=== PATIENT | female | born 1995 | race Caucasian/White ===

== ENCOUNTER 2016-05-21 14:30 | Emergency (ER) | payer MEDICAID ==
[2016-05-21 15:10] VITALS: BP 109/55
[2016-05-21] MEDS ORDERED: Sodium Chloride 0.9% 1,000 ML IV SCH (16:00)
--- NOTE | 2016-05-21 16:01 | EDM.PDOC ---
[id number] [id number] /CAN'T KEEP ANYTHING DOWN Time Seen by Provider: 05/21/16 15:45 Source: Reports: Patient, Family History Limitations: Reports: No limitations - History of Present Illness INITIAL COMMENTS - FREE TEXT/NARRATIVE: 20-year-old female who is 13 weeks gestation with a that has been diagnosed with a small "bleed" which I assume is a chorionic hemorrhage of some type as they are encouraging her to rest. She's had a lot of nausea and vomiting with her , and is needed IV fluids several times. She is up here visiting, has been vomiting for 2 days and came in to be evaluated. No vaginal bleeding, some mild abdominal cramps Severity: moderate Associated Symptoms: Denies: vaginal bleeding Treatment(s) PHYSICAL THERAPY RESIDENT: Reports: Other (see below) (Zofran makes her more sick) - Related Data Allergies/ADRs: Allergies Allergy/AdvReac Type Severity Reaction Status Date / Time amoxicillin Allergy Hives Verified 12/19/15 18:24 ondansetron Allergy Vomiting Verified 05/21/16 15:23 [From Zofran (as hydrochloride)] Penicillins Allergy Hives Verified 12/19/15 18:24 zofran Allergy Vomiting Uncoded 05/21/16 15:23 Home Meds: Home Meds NK [No Known Home Meds] 05/21/16 [History] Past Medical History HEENT History: Reports: Impaired vision Other HEENT History: wisdom teeth removed Respiratory History: Reports: Asthma 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: , 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 Neurological History: Reports: Migraines, Seizure Psychiatric History: Reports: ADHD, Anxiety, Depression, Panic attack - Infectious Disease History Infectious Disease History: Reports: Chicken pox - Past Surgical History HEENT Surgical History: Reports: Other (see below) (Dental surgery for wisdom teeth removal) Social & Family History - Tobacco Use Smoking Status *Q: Never Smoker Second Hand Smoke Exposure: No - Caffeine Use Caffeine Use: Reports: None - Recreational Drug Use Recreational Drug Use: No - Living Situation & Occupation Living situation: Reports: with significant other ( her , lives with significant other David, and her 2 children and [facility]), with family Occupation: unemployed ED ROS GENERAL - Review of Systems Review Of Systems: See Below Constitutional: Reports: malaise, weakness. Denies: fever, chills HEENT: Reports: No symptoms Respiratory: Denies: Shortness of Breath Cardiovascular: Denies: Chest pain GI/Abdominal: Reports: Abdominal pain, Nausea, Vomiting : Reports: no symptoms Neurological: Reports: Dizziness Psychiatric: Reports: No symptoms ED EXAM - Physical Exam Exam: See Below Exam Limited By: No limitations General Appearance: alert, no apparent distress Eye Exam: bilateral eye: EOMI, normal inspection Respiratory/Chest: no respiratory distress, lungs clear Cardiovascular: regular rate, rhythm. No: tachycardia GI/Abdominal: soft heart tones: present heart tones per min: 170 Extremities: normal inspection Neurological: alert, oriented Skin Exam: Warm, Dry, Pallor Course - Vital Signs Last Recorded V/S: Last Vital Signs Temp 96.2 F 05/21/16 15:25 Pulse 94 05/21/16 15:25 Resp 14 05/21/16 15:25 BP 109/55 L 05/21/16 15:25 Pulse Ox 100 05/21/16 15:25 - Orders/Labs/Meds Labs: Laboratory Tests 05/21/16 05/21/16 Range/Units 15:58 15:58 WBC 9.8 (4.5-11.0) K/uL RBC 4.23 (3.30-5.50) M/uL Hgb 12.7 (12.0-15.0) g/dL Hct 33.9 L (36.0-48.0) % MCV 80 (80-98) fL MCH 30 (27-31) pg MCHC 38 H (32-36) % Plt Count 256 (150-400) K/uL Neut % (Auto) 74 H (36-66) % Lymph % (Auto) 18 L (24-44) % [place] % (Auto) 7 H (2-6) % Eos % (Auto) 0 L (2-4) % Baso % (Auto) 0 (0-1) % Sodium 141 (140-148) mmol/L Potassium 4.9 (3.6-5.2) mmol/L Chloride 105 (100-108) mmol/L Carbon Dioxide 17 L (21-32) mmol/L Anion Gap 23.9 H (5.0-14.0) mmol/L BUN 13 (7-18) mg/dL Creatinine 0.5 L (0.6-1.0) mg/dL Est Cr Clr Drug Dosing 140.77 mL/min Estimated GFR (MDRD) > 60 (>60) Glucose 89 (74-106) mg/dL Calcium 9.3 (8.5-10.1) mg/dL Meds: Medications Discontinued Medications Generic Name Dose Route Start Last Admin Trade Name Freq PRN Reason Stop Dose Admin Sodium Chloride 1,000 mls @ 1,000 mls/hr 05/21/16 16:00 05/21/16 16:05 Normal Saline IV 1,000 mls/hr ASDIRECTED [facility] Administration - Re-Assessments/Exams Free Text/Narrative Re-Assessment/Exam: 05/21/16 16:01 She looks pale so a CBC BMP will be obtained while she is getting 1 L of normal saline. 05/21/16 17:01 Patient had no vomiting while in the emergency room for one and half hours. Labs returned reassuring and heart tones were normal. The patient can recheck when home. Departure - Departure Time of Disposition: 17:25 Disposition: Home, Self-Care 01 Condition: good Clinical Impression: Nausea and vomiting in prior to 22 weeks gestation Instructions: Morning Sickness Referrals: Joceline White RN [Primary Care Provider] - Forms: ED Department Discharge Care Plan Goals: Try to increase fluids as tolerated. Recheck in 2-3 days if not improving satisfactorily.
== END 2016-05-21 17:25 | disposition home or self-care (01) ==
LOC: JP.ED 14:30
DX: O21.9 Vomiting of pregnancy, unspecified (principal); Z88.0 Allergy status to penicillin; Z88.1 Allergy status to other antibiotic agents; Z88.8 Allergy status to other drugs, medicaments and biological substances; Z98.890 Other specified postprocedural states; Z3A.13 13 weeks gestation of pregnancy
CPT/HCPCS: 36415; 80048; 85025; 96360; 99284; J7040

== ENCOUNTER 2016-06-17 18:02 | Emergency (ER) | payer MEDICAID ==
[2016-06-17] MEDS: Sodium Chloride 0.9% 1,000 ML IV SCH ×2 (18:38→20:27)
[2016-06-17] MEDS ORDERED: Acetaminophen 500 MG Tab PO ONE (19:16)
[2016-06-17] MEDS ORDERED: Metoclopramide 10 MG/2 ML SDV IVPUSH ONE (19:45)
[2016-06-17] MEDS ORDERED: diphenhydrAMINE 50 MG/ML SDV IVPUSH ONE (19:45)
[2016-06-17] MEDS ORDERED: Sodium Chloride 0.9% 1,000 ML IV SCH (20:30)
--- NOTE | 2016-06-17 21:49 | EDM.PDOC ---
ED HPI - General Chief Complaint: CRESTER Problem Stated Complaint: MEDICAL VIA [facility]TH Time Seen by Provider: 06/17/16 18:15 Source: Reports: Patient History Limitations: Reports: No limitations - History of Present Illness INITIAL COMMENTS - FREE TEXT/NARRATIVE: Pt here with 10/10 chest pain and upper back pain. Feel like "knifes" are sticking out of her back and "ton" of bricks landed on her chest. All this started this morning. She is at 15 weeks gestation. OB is in [place]. She carries the dx of of hyperemesis gravidarum. She can't keep "anything down ". States zofran makes her more nauseated. [place] thinking that would help her pain and then as it did not she called an ambulance to bring her here. No HO PE or clots. Recently saw her OB doc and has FU in June. Has 2 children at home that dad is watching. No fever or cough. No SOB. Has trouble swallowing pills. gags on them. Is taking gummy vitamins. No dysuria. No cramping or spotting. 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: , Spontaneous Neurological History: Reports: Migraines, Seizure Psychiatric History: Reports: ADHD, Anxiety, Depression, Panic attack - Infectious Disease History Infectious Disease History: Reports: Chicken pox - Past Surgical History HEENT Surgical History: Reports: Other (see below) (Dental surgery for wisdom teeth removal) Social & Family History - Tobacco Use Smoking Status *Q: Never Smoker Second Hand Smoke Exposure: No - Caffeine Use Caffeine Use: Reports: None - Recreational Drug Use Recreational Drug Use: No - Living Situation & Occupation Living situation: Reports: with significant other ( her , lives with significant other David, and her 2 children and [place]), with family Occupation: unemployed ED ROS GENERAL - Review of Systems Review Of Systems: ROS reveals no pertinent complaints other than HPI. ED EXAM - Physical Exam Exam: See Below Exam Limited By: No limitations General Appearance: alert, WD/WN, anxious Ears: normal external exam Nose: normal inspection Throat/Mouth: Normal inspection, Normal lips, Normal oropharynx, Normal voice, No airway compromise Head: atraumatic, normocephalic Neck: normal inspection, supple, non-tender, full range of motion Respiratory/Chest: no respiratory distress, lungs clear, normal breath sounds, no accessory muscle use, other (palpation of anterior chest, even light pressure causes her to arch her back and neck in "pain") Cardiovascular: normal peripheral pulses, regular rate, rhythm, no edema GI/Abdominal: normal bowel sounds, soft, non tender, no organomegaly, gravid uterus heart tones: present heart tones per min: 140 Back Exam: normal inspection, full range of motion Extremities: normal inspection, normal range of motion, non-tender, no pedal edema, normal capillary refill Neurological: alert, oriented, normal cognition, normal reflexes, no motor/ sensory deficits Psychiatric: other (Seem histrionic) Skin Exam: Warm, Dry, Intact, Normal color, No rash Lymphatic: no adenopathy EKG INTERPRETATION Rhythm: NSR [place]: normal P-wave: present QRS: normal ST-T: normal QT: prolonged Course - Vital Signs Text/Narrative:: Neg Eugenio LE doppler for clot Last Recorded V/S: Last Vital Signs Temp 36.2 C 06/17/16 18:06 Pulse 93 06/17/16 20:49 Resp 16 06/17/16 20:49 BP 99/57 L 06/17/16 20:49 Pulse Ox 98 06/17/16 20:49 - Orders/Labs/Meds Orders: Active Orders 24 hr Category Date Time Status EKG Documentation Completion [RC] ASDIRECTED Care 06/17/16 18:19 Active VL Duplex Lwr Ext Veins Comp [US] Stat Exams 06/17/16 19:28 Taken DRUG SCREEN, URINE [URCHEM] Stat Lab 06/17/16 18:18 Uncollected UA W/MICROSCOPIC [URIN] Stat Lab 06/17/16 18:17 Uncollected Sodium Chloride 0.9% [Normal Saline] 1,000 ml Med 06/17/16 18:30 Active IV ASDIRECTED Sodium Chloride 0.9% [Normal Saline] 1,000 ml Med 06/17/16 20:30 Active IV ASDIRECTED EKG 12 Lead [EK] Stat Ther 06/17/16 18:17 Ordered Medication Orders Sodium Chloride (Normal Saline) 1,000 mls @ 500 mls/hr IV ASDIRECTED URI Last Admin: 06/17/16 20:27 Dose: 500 mls/hr Infusion: 06/17/16 20:27 Dose: 500 mls/hr Admin: 06/17/16 18:38 Dose: 500 mls/hr Sodium Chloride (Normal Saline) 1,000 mls @ 500 mls/hr IV ASDIRECTED URI Labs: Laboratory Tests 06/17/16 06/17/16 06/17/16 Range/Units 18:31 18:31 18:31 WBC 11.4 H (4.5-11.0) K/uL RBC 4.43 (3.30-5.50) M/uL Hgb 13.4 (12.0-15.0) g/dL Hct 35.4 L (36.0-48.0) % MCV 80 (80-98) fL MCH 30 (27-31) pg MCHC 38 H (32-36) % Plt Count 347 (150-400) K/uL Neut % (Auto) 76 H (36-66) % Lymph % (Auto) 17 L (24-44) % [place] % (Auto) 7 H (2-6) % Eos % (Auto) 0 L (2-4) % Baso % (Auto) 0 (0-1) % ESR (0-25) mm/hr PT 11.0 (9.5-12.0) sec INR 1.04 (0.80-1.20) D-Dimer, Quantitative 408 H (0.0-400.0) ng/mL Sodium (140-148) mmol/L Potassium (3.6-5.2) mmol/L Chloride (100-108) mmol/L Carbon Dioxide (21-32) mmol/L Anion Gap (5.0-14.0) mmol/L BUN (7-18) mg/dL Creatinine (0.6-1.0) mg/dL Est Cr Clr Drug Dosing mL/min Estimated GFR (MDRD) (>60) Glucose (74-106) mg/dL Calcium (8.5-10.1) mg/dL Total Bilirubin (0.2-1.0) mg/dL AST (15-37) U/L ALT (12-78) U/L Alkaline Phosphatase (46-116) U/L Troponin I (0.000-0.056) ng/mL C-Reactive Protein (0.0-0.3) mg/dL Total Protein (6.4-8.2) g/dL Albumin (3.4-5.0) g/dL Globulin (2.3-3.5) g/dL Albumin/Globulin Ratio (1.2-2.2) 06/17/16 06/17/16 06/17/16 Range/Units 18:49 18:49 18:50 WBC (4.5-11.0) K/uL RBC (3.30-5.50) M/uL Hgb (12.0-15.0) g/dL Hct (36.0-48.0) % MCV (80-98) fL MCH (27-31) pg MCHC (32-36) % Plt Count (150-400) K/uL Neut % (Auto) (36-66) % Lymph % (Auto) (24-44) % [place] % (Auto) (2-6) % Eos % (Auto) (2-4) % Baso % (Auto) (0-1) % ESR 53 H (0-25) mm/hr PT (9.5-12.0) sec INR (0.80-1.20) D-Dimer, Quantitative (0.0-400.0) ng/mL Sodium (140-148) mmol/L Potassium (3.6-5.2) mmol/L Chloride (100-108) mmol/L Carbon Dioxide (21-32) mmol/L Anion Gap (5.0-14.0) mmol/L BUN (7-18) mg/dL Creatinine (0.6-1.0) mg/dL Est Cr Clr Drug Dosing mL/min Estimated GFR (MDRD) (>60) Glucose (74-106) mg/dL Calcium (8.5-10.1) mg/dL Total Bilirubin (0.2-1.0) mg/dL AST (15-37) U/L ALT (12-78) U/L Alkaline Phosphatase (46-116) U/L Troponin I < 0.017 (0.000-0.056) ng/mL C-Reactive Protein 0.56 H (0.0-0.3) mg/dL Total Protein (6.4-8.2) g/dL Albumin (3.4-5.0) g/dL Globulin (2.3-3.5) g/dL Albumin/Globulin Ratio (1.2-2.2) 06/17/16 Range/Units 20:26 WBC (4.5-11.0) K/uL RBC (3.30-5.50) M/uL Hgb (12.0-15.0) g/dL Hct (36.0-48.0) % MCV (80-98) fL MCH (27-31) pg MCHC (32-36) % Plt Count (150-400) K/uL Neut % (Auto) (36-66) % Lymph % (Auto) (24-44) % [place] % (Auto) (2-6) % Eos % (Auto) (2-4) % Baso % (Auto) (0-1) % ESR (0-25) mm/hr PT (9.5-12.0) sec INR (0.80-1.20) D-Dimer, Quantitative (0.0-400.0) ng/mL Sodium 136 L (140-148) mmol/L Potassium 3.6 (3.6-5.2) mmol/L Chloride 100 (100-108) mmol/L Carbon Dioxide 19 L (21-32) mmol/L Anion Gap 20.6 H (5.0-14.0) mmol/L BUN 12 (7-18) mg/dL Creatinine 0.6 (0.6-1.0) mg/dL Est Cr Clr Drug Dosing 117.31 mL/min Estimated GFR (MDRD) > 60 (>60) Glucose 119 H (74-106) mg/dL Calcium 9.3 (8.5-10.1) mg/dL Total Bilirubin 0.8 (0.2-1.0) mg/dL AST 22 (15-37) U/L ALT 48 (12-78) U/L Alkaline Phosphatase 97 (46-116) U/L Troponin I (0.000-0.056) ng/mL C-Reactive Protein (0.0-0.3) mg/dL Total Protein 7.6 (6.4-8.2) g/dL Albumin 3.6 (3.4-5.0) g/dL Globulin 4.0 H (2.3-3.5) g/dL Albumin/Globulin Ratio 0.9 L (1.2-2.2) Meds: Medications Generic Name Dose Route Start Last Admin Trade Name Freq PRN Reason Stop Dose Admin Sodium Chloride 1,000 mls @ 500 mls/hr 06/17/16 18:30 06/17/16 20:27 Normal Saline IV 500 mls/hr ASDIRECTED URI Administration Sodium Chloride 1,000 mls @ 500 mls/hr 06/17/16 20:30 Normal Saline IV ASDIRECTED URI Discontinued Medications Generic Name Dose Route Start Last Admin Trade Name Freq PRN Reason Stop Dose Admin Acetaminophen 1,000 mg 06/17/16 19:16 06/17/16 19:22 Tylenol Extra Strength PO 06/17/16 19:17 Not Given ONETIME ONE Diphenhydramine HCl 25 mg 06/17/16 19:45 06/17/16 20:00 Benadryl IVPUSH 06/17/16 19:46 25 mg ONETIME ONE Administration Metoclopramide HCl 10 mg 06/17/16 19:45 06/17/16 19:56 Reglan IVPUSH 06/17/16 19:46 10 mg ONETIME ONE Administration Departure - Departure Time of Disposition: 21:53 Disposition: Home, Self-Care 01 Condition: good Clinical Impression: Hyperemesis gravidarum, Chest wall pain Forms: ED Department Discharge Additional Instructions: Call your OB and FU with her to decide how to manage your pain. I would recommend hot packs to chest and back. - My Orders Last 24 Hours: My Active Orders 06/17/16 18:17 UA W/MICROSCOPIC [URIN] Stat EKG 12 Lead [EK] Stat 06/17/16 18:18 DRUG SCREEN, URINE [URCHEM] Stat 06/17/16 18:19 EKG Documentation Completion [RC] ASDIRECTED 06/17/16 18:30 Sodium Chloride 0.9% [Normal Saline] 1,000 ml IV ASDIRECTED 06/17/16 19:28 VL Duplex Lwr Ext Veins Comp [US] Stat 06/17/16 20:30 Sodium Chloride 0.9% [Normal Saline] 1,000 ml IV ASDIRECTED - Assessment/Plan Last 24 Hours: My Active Orders 06/17/16 18:17 UA W/MICROSCOPIC [URIN] Stat EKG 12 Lead [EK] Stat 06/17/16 18:18 DRUG SCREEN, URINE [URCHEM] Stat 06/17/16 18:19 EKG Documentation Completion [RC] ASDIRECTED 06/17/16 18:30 Sodium Chloride 0.9% [Normal Saline] 1,000 ml IV ASDIRECTED 06/17/16 19:28 VL Duplex Lwr Ext Veins Comp [US] Stat 06/17/16 20:30 Sodium Chloride 0.9% [Normal Saline] 1,000 ml IV ASDIRECTED
[2016-06-17 22:08] VITALS: BP 109/63
--- NOTE | 2016-06-18 12:31 | US ---
VL Duplex Lwr Ext Veins Comp FINDINGS: Ultrasound examination of bilateral lower extremities using Doppler and compressive techni que demonstrates that the right and left common femoral, femoral, and popliteal veins are patent and negative for thrombus. The right and left calf veins were segmentally visualized and are negative w here seen. IMPRESSION: Right and left lower extremities negative for deep venous thrombosis.
== END 2016-06-17 22:40 | disposition home or self-care (01) ==
LOC: JP.ED 18:04
DX: O21.0 Mild hyperemesis gravidarum (principal); O99.89 Other specified diseases and conditions complicating pregnancy, childbirth and the puerperium; R07.89 Other chest pain; J45.909 Unspecified asthma, uncomplicated; F90.9 Attention-deficit hyperactivity disorder, unspecified type; G43.909 Migraine, unspecified, not intractable, without status migrainosus; Z3A.15 15 weeks gestation of pregnancy; Z88.1 Allergy status to other antibiotic agents; Z88.0 Allergy status to penicillin; Z88.8 Allergy status to other drugs, medicaments and biological substances
CPT/HCPCS: 36415; 80053; 84484; 85025; 85379; 85610; 85651; 86140; 93005; 93970; 96361; 96374; 96375; 99285; J1200; J2765; J7040

== ENCOUNTER 2017-03-21 07:58 | Emergency (ER) | payer MEDICAID ==
[2017-03-21 08:23] VITALS: BP 124/76
[2017-03-21] MEDS ORDERED: Albuterol 0.083% 2.5 MG/3 ML Neb Soln NEB ONE (08:31)
--- NOTE | 2017-03-21 08:37 | EDM.PDOC ---
ED HPI GENERAL MEDICAL PROBLEM - General Chief Complaint: Asthma Stated Complaint: CHEST PRESSURE Time Seen by Provider: 03/21/17 08:35 Source of Information: Reports: Patient History Limitations: Reports: No Limitations - History of Present Illness INITIAL COMMENTS - FREE TEXT/NARRATIVE: pt arrived with increased sob. She seemed slightly panicy when she arrived. She did use her inhaler just prior to arrival. Onset: Today Duration: Hour(s): Location: Reports: Chest Associated Symptoms: Reports: Cough, Shortness of Breath, Other (pt has a history of wheezing. 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: , 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 Neurological History: Reports: Migraines, Seizure Psychiatric History: Reports: ADHD, Anxiety, Depression, Panic Attack - Infectious Disease History Infectious Disease History: Reports: Chicken Pox - Past Surgical History HEENT Surgical History: Reports: Oral Surgery, Other (See Below) Female Surgical History: Reports: Section Social & Family History - Tobacco Use Smoking Status *Q: Unknown Ever Smoked Second Hand Smoke Exposure: No - Caffeine Use Caffeine Use: Reports: None - Recreational Drug Use Recreational Drug Use: No - Living Situation & Occupation Living situation: Reports: with Significant Other, with Family Occupation: Unemployed ED ROS GENERAL - Review of Systems Review Of Systems: See Below Constitutional: Reports: No Symptoms HEENT: Reports: No Symptoms Respiratory: Reports: Shortness of Breath, Cough Cardiovascular: Reports: No Symptoms Endocrine: Reports: No Symptoms GI/Abdominal: Reports: No Symptoms : Reports: No Symptoms Musculoskeletal: Reports: No Symptoms Skin: Reports: No Symptoms ED EXAM, GENERAL - Physical Exam Exam: See Below Free Text/Narrative:: pt arrived with acute sob . Exam Limited By: No Limitations General Appearance: Alert, Anxious, Mild Distress Ears: Normal TMs Nose: Normal Inspection Throat/Mouth: Normal Inspection Head: Atraumatic Neck: Normal Inspection Respiratory/Chest: No Respiratory Distress Cardiovascular: Regular Rate, Rhythm GI/Abdominal: Soft, Non-Tender Extremities: Normal Inspection Neurological: Alert, Oriented, Normal Cognition Psychiatric: Anxious, Other (pt did appear anxious when she first arrived. ) Course - Vital Signs Last Recorded V/S: Last Vital Signs Temp 36.1 C 03/21/17 08:14 Pulse 107 H 03/21/17 08:14 Resp 15 03/21/17 08:14 BP 124/76 03/21/17 08:14 Pulse Ox 99 03/21/17 08:14 - Orders/Labs/Meds Orders: Active Orders 24 hr Category Date Time Status RT Aerosol Therapy [RC] ASDIRECTED Care 03/21/17 08:31 Active BASIC METABOLIC PANEL,BMP [CHEM] Stat Lab 03/21/17 08:41 Received Labs: Laboratory Tests 03/21/17 Range/Units 08:41 WBC 9.0 (4.5-11.0) K/uL RBC 4.57 (3.30-5.50) M/uL Hgb 12.7 (12.0-15.0) g/dL Hct 38.1 (36.0-48.0) % MCV 83 (80-98) fL MCH 28 (27-31) pg MCHC 33 (32-36) % Plt Count 285 (150-400) K/uL Neut % (Auto) 80 H (36-66) % Lymph % (Auto) 14 L (24-44) % [place] % (Auto) 5 (2-6) % Eos % (Auto) 1 L (2-4) % Baso % (Auto) 0 (0-1) % Meds: Medications Discontinued Medications Generic Name Dose Route Start Last Admin Trade Name Freq PRN Reason Stop Dose Admin Albuterol 2.5 mg 03/21/17 08:31 03/21/17 08:35 Proventil Neb Soln NEB 03/21/17 08:32 2.5 mg ONETIME ONE Administration - Re-Assessments/Exams Free Text/Narrative Re-Assessment/Exam: 03/21/17 09:14 Pt was given a albuterol neb which appeared to help She was willing to go home. Departure - Departure Time of Disposition: 09:07 Disposition: Home, Self-Care 01 Condition: Fair Clinical Impression: Bronchospasm - Discharge Information Referrals: PCP,None [Primary Care Provider] - Forms: ED Department Discharge Care Plan Goals: establish with a regular Dr, push fluids, cool mist humidifier, Use the ventolin inhaler 2 puffs tid regularly for the next few days and then do PRN. - My Orders Last 24 Hours: My Active Orders 03/21/17 08:31 RT Aerosol Therapy [RC] ASDIRECTED 03/21/17 08:41 BASIC METABOLIC PANEL,BMP [CHEM] Stat - Assessment/Plan Last 24 Hours: My Active Orders 03/21/17 08:31 RT Aerosol Therapy [RC] ASDIRECTED 03/21/17 08:41 BASIC METABOLIC PANEL,BMP [CHEM] Stat
== END 2017-03-21 09:16 | disposition home or self-care (01) ==
LOC: JP.ED 07:58
DX: J98.01 Acute bronchospasm (principal); Z88.1 Allergy status to other antibiotic agents; Z88.0 Allergy status to penicillin; Z88.8 Allergy status to other drugs, medicaments and biological substances
CPT/HCPCS: 36415; 80048; 85025; 94640; 99285-25

== ENCOUNTER 2017-04-18 10:02 | Emergency (ER) | payer MEDICAID | END 2017-04-18 12:25 | disposition left against medical advice (07) | LOC: JP.ED 10:02 | DX: Z53.21 Procedure and treatment not carried out due to patient leaving prior to being seen by health care provider (principal) ==

== ENCOUNTER 2017-06-18 14:38 | Emergency (ER) | payer MEDICAID ==
[2017-06-18] MEDS ORDERED: Prochlorperazine 10 MG/2 ML SDV IVPUSH ONE (15:36)
[2017-06-18] MEDS ORDERED: diphenhydrAMINE 50 MG/ML SDV IVPUSH ONE (15:36)
[2017-06-18] MEDS ORDERED: Ketorolac 30 MG/ML SDV IVPUSH ONE (15:36)
[2017-06-18] MEDS ORDERED: Sodium Chloride 0.9% 1,000 ML IV SCH (15:45)
[2017-06-18 15:47] VITALS: BP 127/73
--- NOTE | 2017-06-18 16:14 | EDM.PDOC ---
ED HPI GENERAL MEDICAL PROBLEM - General Chief Complaint: Headache Stated Complaint: headache Time Seen by Provider: 06/18/17 14:55 Source of Information: Reports: Patient History Limitations: Reports: No Limitations - History of Present Illness INITIAL COMMENTS - FREE TEXT/NARRATIVE: pt arrived with a severe migraine type headache with nausea and lite sensitivity. Onset: Today Duration: Hour(s): Location: Reports: Head, Neck, Other ( she has alot of tightness in her neck) Associated Symptoms: Reports: Headaches, Nausea/Vomiting Headache Pain Score (Numeric/FACES): 7 - Related Data Allergies Allergy/AdvReac Type Severity Reaction Status Date / Time amoxicillin Allergy Hives Verified 06/18/17 15:13 ondansetron Allergy Vomiting Verified 06/18/17 15:13 [From Zofran (as hydrochloride)] Penicillins Allergy Hives Verified 06/18/17 15:13 Home Meds: Home Meds Citalopram [Citalopram HBr] 1 tab PO DAILY 06/18/17 [History] Fluticasone/Salmeterol [Fluticasone-Salmeterol 232-14] 1 puff INH ASDIRECTED [History] Rizatriptan Benzoate [Rizatriptan] 1 tab PO ASDIRECTED 06/18/17 [History] Past Medical History HEENT History: Reports: Impaired Vision Other HEENT History: wisdom teeth removed Respiratory History: Reports: Asthma 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: , Spontaneous Neurological History: Reports: Migraines, Seizure Psychiatric History: Reports: ADHD, Anxiety, Depression, Panic Attack - Infectious Disease History Infectious Disease History: Reports: Chicken Pox - Past Surgical History HEENT Surgical History: Reports: Oral Surgery Female Surgical History: Reports: Section Social & Family History - Tobacco Use Smoking Status *Q: Never Smoker Second Hand Smoke Exposure: No - Caffeine Use Caffeine Use: Reports: None - Recreational Drug Use Recreational Drug Use: No - Living Situation & Occupation Living situation: Reports: with Significant Other, with Family Occupation: Unemployed ED ROS GENERAL - Review of Systems Review Of Systems: See Below Constitutional: Reports: No Symptoms HEENT: Reports: No Symptoms Respiratory: Reports: No Symptoms Cardiovascular: Reports: No Symptoms Endocrine: Reports: No Symptoms GI/Abdominal: Reports: No Symptoms, Nausea : Reports: No Symptoms Musculoskeletal: Reports: Other (pt has tightness in her post cervical area. ) Skin: Reports: No Symptoms Neurological: Reports: Dizziness, Headache - Physical Exam Exam: See Below Text/Narrative:: pt arrived with pain in the post cervical area. She had a severe headache with nausea and lite sensitivity. Exam Limited By: No Limitations General Appearance: Alert, Anxious, Severe Distress, Other (pupils are equal and reactive. ) Ears: Normal TMs Nose: Normal Inspection Throat/Mouth: Normal Inspection Head Exam: Atraumatic Neck: Tender Lateral, Other (Pt has marked tenderness in the post cervical area. ) Respiratory/Chest: No Respiratory Distress Cardiovascular: Regular Rate, Rhythm GI/Abdominal: Soft, Non-Tender (Female) Exam: Deferred Rectal (Female) Exam: Deferred Neuro Exam (Abbreviated): Alert, Oriented, Normal Cognition Extremities: Normal Inspection Psychiatric: Anxious Course - Vital Signs Last Recorded V/S: Last Vital Signs Temp 37.1 C 06/18/17 15:05 Pulse 99 06/18/17 15:05 Resp 16 06/18/17 15:05 BP 127/73 06/18/17 15:05 Pulse Ox 99 06/18/17 15:05 - Orders/Labs/Meds Orders: Active Orders 24 hr Category Date Time Status Sodium Chloride 0.9% [Normal Saline] 1,000 ml Med 06/18/17 15:45 Active IV ASDIRECTED Medication Orders Sodium Chloride (Normal Saline) 1,000 mls @ 999 mls/hr IV ASDIRECTED URI Last Admin: 06/18/17 15:46 Dose: 999 mls/hr Meds: Medications Generic Name Dose Route Start Last Admin Trade Name Freq PRN Reason Stop Dose Admin Sodium Chloride 1,000 mls @ 999 mls/hr 06/18/17 15:45 06/18/17 15:46 Normal Saline IV 999 mls/hr ASDIRECTED URI Administration Discontinued Medications Generic Name Dose Route Start Last Admin Trade Name Freq PRN Reason Stop Dose Admin Diphenhydramine HCl 25 mg 06/18/17 15:36 06/18/17 15:50 Benadryl IVPUSH 06/18/17 15:37 25 mg ONETIME ONE Administration Ketorolac Tromethamine 30 mg 06/18/17 15:36 06/18/17 15:46 Toradol IVPUSH 04/21/18 15:37 30 mg ONETIME ONE Administration Prochlorperazine Edisylate 10 mg 06/18/17 15:36 06/18/17 15:49 Compazine IVPUSH 06/18/17 15:37 10 mg ONETIME ONE Administration - Re-Assessments/Exams Free Text/Narrative Re-Assessment/Exam: 06/18/17 16:15 Pt had a Iv started and she was given benadryl, compazine 10mg. and torodol 30mg iv. . . She is feeling better and is requesting to leave. Departure - Departure Time of Disposition: 16:18 Disposition: Home, Self-Care 01 Condition: Fair Clinical Impression: Migraine, Cervical paraspinal muscle spasm - Discharge Information Referrals: Silke Castrejon NP [Primary Care Provider] - Forms: ED Department Discharge Care Plan Goals: rest, moist warm packs to the post cervical area, flexeril 10mg hs - My Orders Last 24 Hours: My Active Orders 06/18/17 15:45 Sodium Chloride 0.9% [Normal Saline] 1,000 ml IV ASDIRECTED - Assessment/Plan Last 24 Hours: My Active Orders 06/18/17 15:45 Sodium Chloride 0.9% [Normal Saline] 1,000 ml IV ASDIRECTED
== END 2017-06-18 16:29 | disposition home or self-care (01) ==
LOC: JP.ED 14:38
DX: G43.909 Migraine, unspecified, not intractable, without status migrainosus (principal); M62.838 Other muscle spasm; M54.2 Cervicalgia; F41.9 Anxiety disorder, unspecified; F32.9 Major depressive disorder, single episode, unspecified; Z88.0 Allergy status to penicillin; Z88.1 Allergy status to other antibiotic agents; Z88.8 Allergy status to other drugs, medicaments and biological substances
CPT/HCPCS: 96361; 96374; 96375; 99283; J0780; J1200; J1885; J7040

== ENCOUNTER 2017-09-08 21:36 | Emergency (ER) | payer MEDICAID ==
[2017-09-08 22:04] VITALS: BP 134/78
--- NOTE | 2017-09-08 22:38 | EDM.PDOC ---
ED HPI GENERAL MEDICAL PROBLEM - General Chief Complaint: Genitourinary Problem Stated Complaint: FREQUENCY,BURNING,PAINFUL URINATION Time Seen by Provider: 09/08/17 21:55 Source of Information: Reports: Patient History Limitations: Reports: No Limitations - History of Present Illness INITIAL COMMENTS - FREE TEXT/NARRATIVE: This lady complains of burning on urination for one day. with pain and some blood in urine. Doubts since on contraception. Rare uti in past. Treatments CORRESPONDENCE REPRESENTATIVE: Reports: Other (see below) Other Treatments CORRESPONDENCE REPRESENTATIVE: none - Related Data Allergies Allergy/AdvReac Type Severity Reaction Status Date / Time amoxicillin Allergy Hives Verified 06/18/17 15:13 ondansetron Allergy Vomiting Verified 06/18/17 15:13 [From Zofran (as hydrochloride)] Penicillins Allergy Hives Verified 06/18/17 15:13 Home Meds: Home Meds Citalopram [Citalopram HBr] 1 tab PO DAILY 06/18/17 [History] Fluticasone/Salmeterol [Fluticasone-Salmeterol 232-14] 1 puff INH ASDIRECTED [History] Rizatriptan Benzoate [Rizatriptan] 1 tab PO ASDIRECTED 06/18/17 [History] Past Medical History HEENT History: Reports: Impaired Vision Other HEENT History: wisdom teeth removed 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 History: Reports: 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: , 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 Neurological History: Reports: Migraines, Seizure Psychiatric History: Reports: ADHD, Anxiety, Depression, Panic Attack - Infectious Disease History Infectious Disease History: Reports: Chicken Pox - Past Surgical History HEENT Surgical History: Reports: Oral Surgery Female Surgical History: Reports: Section Social & Family History - Tobacco Use Smoking Status *Q: Current Status Unknown Second Hand Smoke Exposure: No - Caffeine Use Caffeine Use: Reports: Coffee - Recreational Drug Use Recreational Drug Use: No - Living Situation & Occupation Living situation: Reports: with Significant Other, with Family Occupation: Unemployed ED ROS GENERAL - Review of Systems Review Of Systems: ROS reveals no pertinent complaints other than HPI. ED EXAM, RENAL/ - Physical Exam Exam: See Below Exam Limited By: No Limitations General Appearance: Alert, WD/WN, No Apparent Distress GI/Abdominal: Soft, Non-Tender Back Exam: No: CVA Tenderness (R), CVA Tenderness (L) Course - Vital Signs Last Recorded V/S: Last Vital Signs Temp 37.2 C 09/08/17 21:53 Pulse 101 H 09/08/17 21:53 Resp 16 09/08/17 21:53 BP 134/78 09/08/17 21:53 Pulse Ox 98 09/08/17 21:53 - Orders/Labs/Meds Orders: Active Orders 24 hr Category Date Time Status UA W/MICROSCOPIC [URIN] Urgent Lab 09/08/17 22:13 Ordered Labs: Laboratory Tests 09/08/17 Range/Units 22:13 Urine Color Yellow Urine Appearance Cloudy Urine pH 5.0 (4.5-8.0) Ur Specific [place] 1.030 (1.008-1.030) Urine Protein Trace (NEGATIVE) mg/dL Urine Glucose (UA) Normal (NEGATIVE) mg/dL Urine Ketones Negative (NEGATIVE) mg/dL Urine Occult Blood Large (NEGATIVE) Urine Nitrite Negative (NEGATIVE) Urine Bilirubin Negative (NEGATIVE) Urine Urobilinogen Normal (NORMAL) mg/dL Ur Leukocyte Esterase Large (NEGATIVE) Urine RBC Semi-packed H (0-5) Urine WBC Semi-packed H (0-5) Ur Epithelial Cells Moderate Amorphous Sediment Not seen Urine Bacteria Many Urine Mucus Many Urine Other Departure - Departure Time of Disposition: 22:35 Disposition: Home, Self-Care 01 Condition: Fair Clinical Impression: UTI, Urinary tract infectious disease - Discharge Information *PRESCRIPTION DRUG MONITORING PROGRAM REVIEWED*: Not Applicable *COPY OF PRESCRIPTION DRUG MONITORING REPORT IN PATIENT RITA: Not Applicable Referrals: PCP,None [Primary Care Provider] - Additional Instructions: Take Bactrim DS 1 tab twice daily for 5 days. This will cover most bacteria involved in bladder infections. Be sure to drink a lot of water. Increased water intake can help to prevent infections in the future. See doctor if no better in 2 days. - My Orders Last 24 Hours: My Active Orders 09/08/17 22:13 UA W/MICROSCOPIC [URIN] Urgent - Assessment/Plan Last 24 Hours: My Active Orders 09/08/17 22:13 UA W/MICROSCOPIC [URIN] Urgent
== END 2017-09-08 22:57 | disposition home or self-care (01) ==
LOC: JP.ED 21:36
DX: N39.0 Urinary tract infection, site not specified (principal); F41.9 Anxiety disorder, unspecified; F32.9 Major depressive disorder, single episode, unspecified; Z79.899 Other long term (current) drug therapy; Z88.1 Allergy status to other antibiotic agents; Z88.0 Allergy status to penicillin; Z88.8 Allergy status to other drugs, medicaments and biological substances
CPT/HCPCS: 81001; 99284